=== PATIENT | male | born 1965 | race Hispanic/Latino ===

== ENCOUNTER 2021-03-13 18:33 | Emergency (ER) | payer SELFPAY ==
[~2021-03-13] VITALS: Ht 162.6 cm; Wt 94.0 kg
[2021-03-13] MEDS ORDERED: IBUPROFEN600 MG PO (21:06)
[2021-03-13 21:32] VITALS: BP 132/62
== END 2021-03-13 21:42 | disposition home or self-care (01) | DRG 563 ==
LOC: ED 18:33
DX: S43.402A Unspecified sprain of left shoulder joint, initial encounter (principal); S63.502A Unspecified sprain of left wrist, initial encounter; S50.02XA Contusion of left elbow, initial encounter; S39.012A Strain of muscle, fascia and tendon of lower back, initial encounter; I10 Essential (primary) hypertension; E11.9 Type 2 diabetes mellitus without complications; W01.0XXA Fall on same level from slipping, tripping and stumbling without subsequent striking against object, initial encounter; Y92.512 Supermarket, store or market as the place of occurrence of the external cause